=== PATIENT | male | born 1995 | race Caucasian/White ===

== ENCOUNTER 2022-09-02 10:04 | Emergency (ER) | payer MEDICAID ==
[~2022-09-02] VITALS: Ht 177.8 cm; Wt 120.0 kg
[~2022-09-02 10:04] MED LIST: CEPH500C2 MT; IBUP-2029 PO; OFLO5DRO4 EACH EAR
[2022-09-02] MEDS ORDERED: LIDOCAINE HCL/PF 1% 10 MG/ML 5ML VIAL INFIL ONE (12:30)
[2022-09-02] MEDS ORDERED: BACITRACIN ZINC OINT UDPKT TOP ONE (12:30)
[2022-09-02] MEDS ORDERED: ACETAMINOPHEN 325MG TABLET PO ONE (12:30)
[2022-09-02] MEDS ORDERED: IBUPROFEN 600MG TABLET PO ONE (12:30)
[2022-09-02] MEDS ORDERED: TETANUS, DIPHTHERIA, PERTUSSIS VAC/PF 0.5ML (>10YR OLD) IM ONE (12:30)
[2022-09-02 12:40] VITALS: BP 151/80
[2022-09-02] MEDS ORDERED: SULF1TAB48 MT (13:47)
[2022-09-02] MEDS ORDERED: CEPH500T MT (13:47)
== END 2022-09-02 14:09 | disposition home or self-care (01) ==
LOC: ER 10:46
DX: L72.0 Epidermal cyst (principal); H60.12 Cellulitis of left external ear
CPT/HCPCS: 10060; 90471; 90715; 99283; J3490; Z7610

== ENCOUNTER 2023-05-07 12:09 | Emergency (ER) | payer MEDICAID ==
[~2023-05-07] VITALS: Ht 177.8 cm; Wt 120.2 kg
[~2023-05-07 12:09] MED LIST changes: +CEPH500T MT; +SULF1TAB48 MT
[2023-05-07 12:41] VITALS: TEMP 98.6; O2SAT 100
[2023-05-07] MEDS ORDERED: IBUPROFEN 600MG TABLET PO ONE (13:30)
[2023-05-07 13:59] VITALS: BP 155/104; PULSE 70; RESP 16
[2023-05-07] MEDS ORDERED: METH-653 MT (14:41)
== END 2023-05-07 15:00 | disposition home or self-care (01) ==
LOC: ER 12:09
DX: M54.50 Low back pain, unspecified (principal); Z79.899 Other long term (current) drug therapy
CPT/HCPCS: 72100; 99283